=== PATIENT | male | born 1990 | race Two or more races ===

== ENCOUNTER 2020-07-05 01:33 | Emergency (ER) | payer OTHER ==
[~2020-07-05] VITALS: Ht 177.8 cm; Wt 72.6 kg
--- NOTE | 2020-07-05 01:36 | NUR ---
ED Nurse Note: walked in to ed requesting to be evaluated for depression. pt denies harm to self or others. denies any psych diagnosis. vss, nad, aaox4, ambulatory.
[2020-07-05 01:44] VITALS: BP 127/71
[2020-07-05] MEDS ORDERED: ZYPREXA5 MG ORAL (01:57)
--- NOTE | 2020-07-05 01:58 | Emergency Room Report ---
History of Present Illness General Chief Complaint: Behavioral Complaint Source: Patient Present Illness HPI 30-year-old male who is homeless. He said he has history of bipolar but not on medication. He presents with chief complaint of psychiatric issue. He said he felt depressed. Also hearing voices. Has not been on medication for months. Last admission was to [facility] earlier this year. He denies suicidal thoughts or homicidal thought. Denies any alcohol or drugs. Does admit to smoking marijuana. Allergies: Coded Allergies: No Known Allergies (Unverified , 07/05/20) COVID-19 Screening COVID-19 risk:Contact w/high r: No Has patient experienced clement: No COVID-19 Testing performed SHIFT MANAGER: No Patient History Past Medical History: see triage record, old chart reviewed Past Surgical History: none Family History: none Immunizations: other Reviewed Nursing Documentation: PMH: Agreed; PSxH: Agreed Nursing Documentation-PM Past Medical History: No Stated History Review of Systems ENT: Denies: sore throat Cardiovascular: Denies: chest pain, palpitations Gastrointestinal/Abdominal: Denies: nausea, vomiting, diarrhea Musculoskeletal: Denies: back problems Skin: Denies: rash Neurological: Denies: HIGHTOWER, seizures All Other Systems: negative except mentioned in HPI Physical Exam Vital Signs Date Time Temp Pulse Resp B/P (MAP) Pulse Ox O2 Delivery O2 Flow Rate FiO2 07/05/20 01:35 98.2 66 18 129/67 (87) 99 Room Air 07/05/20 01:44 99 Vitals normal Sp02 EP Interpretation: reviewed, normal General Appearance: alert/responsive, no apparent distress, non-toxic Head: normocephalic, atraumatic Eyes: PERRL, EOMI ENT: oropharynx normal Neck: supple/symm/no masses Respiratory: effort normal, no rhonchi, no wheezing Cardiovascular: no murmur, gallop, rub Gastrointestinal: non-tender, no mass, non-distended, no rebound/guarding, normal bowel sounds Musculoskeletal: gait & station normal Neurologic: oriented x3, sensory intact, motor strength/tone normal Skin: no rash, normal palpation Medical Decision Making Diagnostic Impression: Primary Impression: Behavioral disorder ER Course This patient presents with 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 Not suicidal homicidal. No criteria for 5150. I gave him a dose of Zyprexa here. Will discharge home with mental health follow-up. Last Vital Signs Date Time Temp Pulse Resp B/P (MAP) Pulse Ox O2 Delivery O2 Flow Rate FiO2 07/05/20 01:44 98.1 68 18 127/71 99 Room Air 07/05/20 01:44 99 Status: improved Disposition: HOME, SELF-CARE Condition: Stable Scripts Olanzapine* (ZYPREXA*) 5 Mg Tablet 5 MG ORAL DAILY, #30 TAB Prov: Ben Smith MD 07/05/20 Referrals: [facility],REFERRING (PCP) Additional Instructions: Follow-up with mental health within a week. Return if symptoms worsen. Ben Smith MD Jul 05, 2020 01:58
[2020-07-05 02:15] VITALS: BP 127/71
--- NOTE | 2020-07-05 02:15 | NUR ---
ER DISCHARGE NOTE: Patient is cleared to be discharged per ERMD, pt is aox4, on room air, with stable vital signs. pt was given dc and prescription instructions, pt was able to verbalize understanding, pt id band removed. pt is able to ambulate with steady gait. pt took all belongings. pt given mental health resources
== END 2020-07-05 02:15 | disposition home or self-care (01) ==
LOC: EMR 01:50
DX: F91.9 Conduct disorder, unspecified (principal); F32.9 Major depressive disorder, single episode, unspecified
CPT/HCPCS: 99282